=== PATIENT | female | born 1935 | race Caucasian/White ===

== ENCOUNTER 2017-01-10 23:17 | Observation (INO) | payer OTHER, MEDICARE ==
[~2017-01-10 23:17] MED LIST: ALBUTEROL0.83 MG/ML INH; ANASTROZOLE1 MG PO; ANTIVERT25 MG PO; ASPIRIN81 MG PO; COZAAR50 MG PO; FOSAMAX70 MG PO; FUROSEMIDE20 MG PO; HYDROCHLOROTHIA25 MG PO; LOVASTATIN20 M1 PO; MUCINEX600 MG PO; PERCOCET 5MG/AP1 TA1 PO; PREVACID30 M1 PO; SOMA350 MG PO; SPIRIVA18 MCG IH; SYMBICORT 160-4.6 GM IH
[2017-01-11 00:49] LABS: BASO % 0.3 % (0-2); EOS % 3.6 % (0-7); EOSINOPHIL ABSOLUTE COUNT 0.1 tho/cmm (0.0-0.7); HCT-HEMATOCRIT 30.7 % (34.0-49.0); IMMATURE GRANULOCYTES ABSOLUTE 0.03 tho/cmm (0-0.03); IMMATURE GRANULOCYTES PERCENT 0.8 % (0-0.3); LYMPH % 20.8 % (20-45); LYMPH ABSOLUTE COUNT 0.8 tho/cmm (0.8-4.5); MCH (MEAN CORPUSCULAR HGB) 28.1 pg (28.0-32.0); MCHC MEAN CORPUSCULAR HGB CONC 32.6 % (32.0-36.0); MCV (MEAN CELL VOLUME) 86.2 fl (82.0-96.0); MEAN PLATELET VOLUME 10.9 cmc (9.4-12.4); MONO % 10.1 % (0-12); MONOCYTE ABSOLUTE COUNT 0.4 tho/cmm (0.0-1.2); NEUTROPHIL ABSOLUTE COUNT 2.4 tho/cmm (1.6-8.0); NEUTROPHIL-AUTOMATED 2.4 tho/cmm (1.6-8.0); NEUTROPHILS % 64.4 % (40-80); PLATELET COUNT 154 tho/cmm (150-450); RED BLOOD COUNT 3.56 mil/cmm (4.00-5.20); RED CELL DISTRIBUTION WIDTH 14.2 % (12.4-16.4); WHITE BLOOD COUNT 3.7 tho/cmm (4.0-10.0)
[2017-01-11 00:55] LABS: INR 1.1 INR (0.9-1.1); PROTHROMBIN TIME 12.4 SECONDS (9.0-13.6)
[2017-01-11] MEDS ORDERED: STIOLTO RESPIMAT4 GM INH (13:54)
[2017-01-11] MEDS ORDERED: ALBUTEROL (13:56)
[2017-01-11] MEDS ORDERED: NORCO 5-325 TA1 EACH PO (13:58)
[2017-01-11] MEDS ORDERED: TYLENOL EXTRA500 M1 PO (13:58)
[2017-01-11] MEDS ORDERED: PREVACID15 M2 PO (13:59)
[2017-01-11] MEDS ORDERED: LOVENOX40 MG/0.1 SC (14:00)
[2017-01-11] MEDS ORDERED: ANALGESIC (14:00)
[2017-01-11] MEDS ORDERED: FLONASE ALLERG9.9 ML (14:02)
== END 2017-01-11 14:40 | disposition swing bed (61) ==
LOC: EDMED 23:17 → EMR2 01-11 01:31 → 5EB 01-11 01:56
PROVIDERS: Emergency Medicine; ADMIT Orthopaedic Surgery
DX: M25.551 Pain in right hip (principal); M19.90 Unspecified osteoarthritis, unspecified site; M81.0 Age-related osteoporosis without current pathological fracture; J44.9 Chronic obstructive pulmonary disease, unspecified; I10 Essential (primary) hypertension; E78.5 Hyperlipidemia, unspecified; Z79.01 Long term (current) use of anticoagulants; Z79.83 Long term (current) use of bisphosphonates; Z79.82 Long term (current) use of aspirin; Z79.899 Other long term (current) drug therapy; Z88.2 Allergy status to sulfonamides; Z88.5 Allergy status to narcotic agent; Z88.8 Allergy status to other drugs, medicaments and biological substances; Z85.3 Personal history of malignant neoplasm of breast; Z82.3 Family history of stroke; Z83.3 Family history of diabetes mellitus; Z80.0 Family history of malignant neoplasm of digestive organs; Z82.61 Family history of arthritis; Z90.49 Acquired absence of other specified parts of digestive tract; Z96.641 Presence of right artificial hip joint; Z98.51 Tubal ligation status; Z98.890 Other specified postprocedural states; Z99.81 Dependence on supplemental oxygen
CPT/HCPCS: G0378; G8978-GP-CJ; G8979-GP-CI; G8980-GP-CJ; J1650